=== PATIENT | female | born 1935 | race Caucasian/White ===

== ENCOUNTER 2023-01-01 17:22 | Emergency (ER) | payer OTHER ==
[2023-01-01 17:58] VITALS: BMI 20.5
[2023-01-02 02:10] VITALS: BP 159/71; PULSE 60; RESP 20; TEMP 98
== END 2023-01-02 02:15 | disposition home or self-care (01) ==
LOC: JER 17:22
DX: S00.03XA Contusion of scalp, initial encounter (principal); W22.8XXA Striking against or struck by other objects, initial encounter; W19.XXXA Unspecified fall, initial encounter; Y92.128 Other place in nursing home as the place of occurrence of the external cause
CPT/HCPCS: 70450-TC; 70486-TC; 71045-TC-FY; 72125-TC; 72170-TC-FY; 99284-25

== ENCOUNTER 2023-11-27 10:53 | Observation (INO) | payer OTHER ==
[2023-11-27] MEDS ORDERED: ACETAMINOPHEN INJECTION 100 ML IVPB ONE ×2 (11:49→23:18)
[2023-11-27 11:50] LABS: BASO % 0.1 % (0-2.0); EOS % 0.8 % (0-4.5); HEMATOCRIT 33.5 % (32.4-45.2); HEMOGLOBIN 10.8 GM/dL (10.7-15.3); LYMPH % 15.2 % (8-40); MCH 30.3 pg (25.7-33.7); MCHC 32.3 g/dl (32.0-36.0); MEAN CELL VOLUME 93.6 fl (80-96); MEAN PLT VOLUME 7.6 fl (7.5-11.1); MONO % 5.4 % (3.8-10.2); NEUT % 78.5 % (42.8-82.8); PLATELET COUNT 296 10^3/uL (134-434); RBC 3.57 M/mm3 (3.60-5.2); RDW 14.7 % (11.6-15.6); WHITE BLOOD COUNT 10.1 K/mm3 (4.0-10.0)
[2023-11-27] MEDS ORDERED: PANTOPRAZOLE SODIUM 40 MG VIAL ONE (11:50)
[2023-11-27] MEDS ORDERED: DEXAMETHASONE SOD PHOSPHATE 10 MG/1 ML VIAL ONE (11:54)
[2023-11-27 11:58] LABS: INR 1.03 (0.83-1.09)
[2023-11-27 11:59] LABS: VENOUS BASE EXCESS 0.4 mmol/L (-2-2); VENOUS O2 SATURATION 45.9 % (70-80); VENOUS PH 7.32 (7.310-7.410)
[2023-11-27 12:00] LABS: ACTIVATED PTT 29.2 SECONDS (25.2-36.5)
[2023-11-27 12:12] LABS: POTASSIUM 3.9 mmol/L (3.5-5.1)
[2023-11-27 12:14] LABS: BLOOD UREA NITROGEN 18.5 mg/dL (7-18); CALCIUM 9.9 mg/dL (8.5-10.1)
[2023-11-27] MEDS: PANTOPRAZOLE SODIUM 40 MG VIAL IVPUSH ONE (12:14)
[2023-11-27] MEDS: SODIUM CHLORIDE 0.9% 500 ML INFUS.BAG IV ONE (12:14)
[2023-11-27] MEDS: ACETAMINOPHEN 1000 MG/100 ML BAG IVPB ONE (12:14)
[2023-11-27 12:15] LABS: ALBUMIN 3.5 g/dl (3.4-5.0)
[2023-11-27] MEDS: DEXAMETHASONE SOD PHOSPHATE 10 MG/1 ML VIAL IVPUSH ONE (12:15)
[2023-11-27 12:17] LABS: CREATININE 0.6 mg/dL (0.55-1.3)
[2023-11-27 12:19] LABS: BILIRUBIN,TOTAL 0.5 mg/dL (0.2-1)
[2023-11-27 12:21] LABS: EPI CELLS 11 /uL (0-25.1); HYALINE CASTS 0 /uL (0-3.1); PH,URINE 6.5 (5.0-8.0); URINE APPEARANCE CLEAR; URINE BACTERIA >9,000 /uL (0-1359); URINE BILIRUBIN NEGATIVE (NEGATIVE); URINE COLOR YELLOW; URINE GLUCOSE (UA) NEGATIVE (NEGATIVE); URINE KETONE NEGATIVE (NEGATIVE); URINE LEUK ESTERASE 1+ (NEGATIVE); URINE NITRITE POSITIVE (NEGATIVE); URINE PROTEIN NEGATIVE (NEGATIVE); URINE RBC 11 /uL (0-23.9); URINE WBC 96 /uL (0-25.8)
[2023-11-27 12:22] LABS: N-TERMINAL BNP 748.5 pg/ml (5-450)
[2023-11-27 12:24] LABS: LACTIC ACID 3.1 mmol/L (0.4-2.0)
[2023-11-27 12:45] LABS: ERYTHROCYTE SEDIMENTATION RATE 44 mm/hr (0-30)
[2023-11-27] MEDS ORDERED: CEFEPIME 1 GM/100 ML BAG IVPB ONE (12:58)
[2023-11-27] MEDS: CEFEPIME HCL 1 GM VIAL (RESTRICTED TO ID) IVPB ONE (13:24)
[2023-11-27] MEDS: ACETAMINOPHEN 1000 MG/100 ML BAG IVPB PRN (23:26)
[2023-11-27] MEDS: SODIUM CHLORIDE 1,000 ML IV SCH (23:26)
[2023-11-28] MEDS ORDERED: CEFTRIAXONE 1 GM/50 ML BAG ONE (05:17)
[2023-11-28] MEDS: CEFTRIAXONE 1,000 GM in DEXTROSE 5%-WATER - 50 ML IVPB SCH (05:30)
[2023-11-28 06:30] LABS: BASO % 0.2 % (0-2.0); EOS % 0.1 % (0-4.5); HEMATOCRIT 29.7 % (32.4-45.2); HEMOGLOBIN 9.7 GM/dL (10.7-15.3); LYMPH % 21.2 % (8-40); MCH 30.3 pg (25.7-33.7); MCHC 32.8 g/dl (32.0-36.0); MEAN CELL VOLUME 92.3 fl (80-96); MEAN PLT VOLUME 7.7 fl (7.5-11.1); NEUT % 70.5 % (42.8-82.8); PLATELET COUNT 259 10^3/uL (134-434); RBC 3.22 M/mm3 (3.60-5.2); RDW 14.2 % (11.6-15.6); WHITE BLOOD COUNT 5.5 K/mm3 (4.0-10.0)
[2023-11-28 06:32] LABS: POTASSIUM 4.4 mmol/L (3.5-5.1)
[2023-11-28 06:36] LABS: ALBUMIN 3.2 g/dl (3.4-5.0); BLOOD UREA NITROGEN 20.8 mg/dL (7-18)
[2023-11-28 06:39] LABS: CREATININE 0.5 mg/dL (0.55-1.3)
[2023-11-28 06:40] LABS: TOT PROT 7.4 g/dl (6.4-8.2)
[2023-11-28 06:41] LABS: BILIRUBIN,TOTAL 0.4 mg/dL (0.2-1)
[2023-11-28] MEDS ORDERED: amLODIPine BESYLATE 5 MG TABLET (FP) ONE (13:54)
[2023-11-28] MEDS: amLODIPine BESYLATE 5 MG TABLET (FP) PO SCH (14:15)
[2023-11-28] MEDS: HEPARIN NA (PORCINE) 5,000 UNITS/ML 1ML VIAL SQ SCH (21:46)
[2023-11-29 16:06] VITALS: BMI 17.6
[2023-11-30 06:00] VITALS: RESP 18
[2023-11-30] MEDS: CEFTRIAXONE 1 GM in DEXTROSE 5%-WATER - 50 ML IVPB SCH (07:25)
[2023-11-30 14:44] VITALS: BP 146/86; PULSE 92; TEMP 98
== END 2023-11-30 19:37 ==
LOC: JER 10:53 → JERBED 16:27 → J8W 11-28 14:55
PROVIDERS: ADMIT Internal Medicine; ATTEND Internal Medicine
PROC: 3E033NZ Introduction of Analgesics, Hypnotics, Sedatives into Peripheral Vein, Percutaneous Approach (ICD-10-PCS; principal; 2023-11-27)
PROC: 3E03329 Introduction of Other Anti-infective into Peripheral Vein, Percutaneous Approach (ICD-10-PCS; 2023-11-27)
PROC: 3E03329 Introduction of Other Anti-infective into Peripheral Vein, Percutaneous Approach (ICD-10-PCS; 2023-11-27)
PROC: 3E023GC Introduction of Other Therapeutic Substance into Muscle, Percutaneous Approach (ICD-10-PCS; 2023-11-27)
PROC: 3E0337Z Introduction of Electrolytic and Water Balance Substance into Peripheral Vein, Percutaneous Approach (ICD-10-PCS; 2023-11-27)
DX: N39.0 Urinary tract infection, site not specified (principal); J02.9 Acute pharyngitis, unspecified; E03.9 Hypothyroidism, unspecified; E11.9 Type 2 diabetes mellitus without complications; E78.00 Pure hypercholesterolemia, unspecified; I51.7 Cardiomegaly; M19.90 Unspecified osteoarthritis, unspecified site; D64.9 Anemia, unspecified; R29.6 Repeated falls; R22.1 Localized swelling, mass and lump, neck; Z86.73 Personal history of transient ischemic attack (TIA), and cerebral infarction without residual deficits
CPT/HCPCS: 0241U-QW; 36415; 70491-TC; 71045-TC-FY; 80053; 81003; 82272; 82550; 82803; 82962; 83605; 83735; 83880; 84484; 85025; 85610; 85651; 85730; 86140; 86850; 86900; 86901; 87040; 87070; 87077; 87086; 87186; 87635; 87651; 93005; 93010; 96361; 96365; 96372; 96375; 96376; 99285-25; G0378; J0131; J1100; J1644; Q9967